=== PATIENT | female | born 1950 | race Caucasian/White ===

== ENCOUNTER 2025-04-18 09:17 | Day surgery (SDC) | payer MEDICARE ==
[2025-04-17 10:27] LABS: BASOPHILS % 0.7 % (0.0-1.0); EOSINOPHILS % 0.4 % (0.0-6.0); LYMPHOCYTES % 24.1 % (18.0-39.1); MONOCYTES % 8.9 % (4.4-11.3); NEUTROPHILS % 65.4 % (38.7-80.0); RED CELL DISTRIBUTION WIDTH 12.5 % (11.7-14.4)
[2025-04-17 10:58] LABS: EST GLOMERULAR FILTRATION RATE 68.0 ML/MIN (>=60)
[~2025-04-18] VITALS: Ht 170.2 cm; Wt 62.1 kg
[2025-04-18] VITALS (11 sets, daily range): BP systolic 105–141; BP diastolic 65–74; PULSE 66–84; RESP 14–20; TEMP 97.7; O2SAT 97–99
[~2025-04-18 09:17] MED LIST: ALLEGRA ALLERGY60 MG PO; LEXAPRO5 MG PO; LOSARTAN POTASS25 MG PO; METFORMIN HCL500 MG PO; METOPROLOL SUCC25 MG PO; NP THYROID60 MG PO; PROGESTERONE200 MG PO; SEMAGLUTID0.25 MG/0. SC; SODIUM CHLORIDE 0.9% 1000ML 1,000 ML ONE
[2025-04-18] MEDS ORDERED: LIDOCAINE HCL 2% LOCAL 20 ML VIAL ONE (13:02)
[2025-04-18] MEDS ORDERED: VERAPAMIL HCL 2.5 MG/ML 2 ML VIAL ONE (13:02)
[2025-04-18] MEDS ORDERED: HEPARIN SOD (PORCINE) 1000 UNIT/ML 30ML ONE (13:02)
[2025-04-18] MEDS ORDERED: HEPARIN SOD/SOD CHLORIDE 2,000 ML ONE (13:02)
[2025-04-18] MEDS ORDERED: IOPAMIDOL 370 MG/ML 100 ML INFUS..BTL INJ ONE (13:03)
[2025-04-18] MEDS ORDERED: MIDAZOLAM HCL 2 MG/2 ML VIAL ONE (13:12)
[2025-04-18] MEDS ORDERED: FENTANYL CITRATE/PF 100MCG/2 ML INJ ONE (13:13)
== END 2025-04-18 17:00 | disposition home or self-care (01) ==
LOC: CATH LAB 09:17
PROVIDERS: ATTEND Internal Medicine Interventional Cardiology
DX: I25.119 Atherosclerotic heart disease of native coronary artery with unspecified angina pectoris (principal); I10 Essential (primary) hypertension; I65.23 Occlusion and stenosis of bilateral carotid arteries; I73.9 Peripheral vascular disease, unspecified; E11.9 Type 2 diabetes mellitus without complications; J44.9 Chronic obstructive pulmonary disease, unspecified; M19.90 Unspecified osteoarthritis, unspecified site; Z87.891 Personal history of nicotine dependence; Z79.85 Long-term (current) use of injectable non-insulin antidiabetic drugs; Z79.890 Hormone replacement therapy; Z88.0 Allergy status to penicillin; Z88.6 Allergy status to analgesic agent; Z95.818 Presence of other cardiac implants and grafts; Z82.49 Family history of ischemic heart disease and other diseases of the circulatory system
CPT/HCPCS: 36415 ×2; 76937; 80053; 82948; 85025; 93458; C1769; C1887; J1644; J2003; J2250; J3010; J7030; Q9967; 99152; 99153